=== PATIENT | male | born 1935 | race Caucasian/White ===

== ENCOUNTER 2022-12-08 18:39 | Inpatient (IN) ==
[2022-12-08] MEDS ORDERED: IOPAMIDOL 100 ML BOTTLE IV ONE (18:40)
[2022-12-08] MEDS ORDERED: ALBUTEROL SULFATE 2.5 MG/3 ML NEBULIZER NEB ONE (19:40)
[2022-12-08] MEDS ORDERED: IPRATROPIUM/ALBUTEROL 3 ML AMPUL.NEB NEB ONE (19:40)
[2022-12-08] MEDS ORDERED: methylPREDNISolone SOD SUCC 125 MG/2 ML VIAL IV ONE (19:42)
[2022-12-08 19:57] LABS: POC Calcium, Ionized 1.1 (1.16-1.32); POC Creatinine 1.2 (0.6-1.2); POC Potassium 3.7 (3.3-5.1)
[2022-12-08 20:58] LABS: Basophils # (Auto) 0.06 K/mcL (0.00-0.30); Basophils % (Auto) 1.2 % (0.0-2.0); Eosinophils # (Auto) 0.08 K/mcL (0.00-0.70); Eosinophils % (Auto) 1.6 % (0.0-7.0); Hematocrit 39.3 % (40.1-51.0); Hemoglobin 12.6 g/dL (13.7-17.5); Lymphocytes # (Auto) 1.25 K/mcL (1.50-4.80); Lymphocytes % (Auto) 25.1 % (15.5-49.0); Mean Cell Volume 96.6 fL (80.0-100.0); Mean Corpuscular HGB Conc 32.1 g/dL (31.0-36.0); Mean Platelet Volume 10.8 fL (8.8-12.5); Monocytes # (Auto) 0.37 K/mcL (0.10-0.90); Monocytes % (Auto) 7.4 % (1.0-12.0); Neutrophils % (Auto) 64.3 % (38.0-78.0); Platelet Count 116 K/mcL (140-440); RBC 4.07 M/mcL (4.63-6.08); Red Cell Distribution Width 19.9 % (11.5-14.5)
[2022-12-08 21:10] LABS: ALT/SGPT 16 U/L (<40); AST/SGOT 31 U/L (<40); Albumin 3.7 gm/dL (3.2-5.2); Alkaline Phosphatase 121 U/L (39-117); Bilirubin,Direct 0.4 mg/dL (<0.3); Bilirubin,Total 1.1 mg/dL (0.1-1.0); Globulin 3.3 gm/dL (2.2-3.7)
[2022-12-08] MEDS ORDERED: FUROSEMIDE 100 MG/10 ML VIAL IV ONE (21:24)
[2022-12-08 22:44] LABS: INR 1.6 (0.9-1.1); Prothrombin Time 19.4 sec (11.9-14.5)
[2022-12-09] MEDS ORDERED: ALBUTEROL SULFATE 2.5 MG/3 ML NEBULIZER NEB PRN (00:04)
[2022-12-09] MEDS ORDERED: ONDANSETRON 4 MG/2 ML VIAL IV PRN (00:04)
[2022-12-09] MEDS ORDERED: SENNOSIDES 1 TABLET PO PRN (00:04)
[2022-12-09] MEDS ORDERED: ACETAMINOPHEN 325 MG TABLET PO PRN (00:04)
[2022-12-09] MEDS ORDERED: LACTULOSE 20 GM/30 ML ORAL.SOL PO PRN (00:04)
[2022-12-09] MEDS ORDERED: METOPROLOL TARTRATE 50 MG TABLET PO ONE (00:39)
[2022-12-09] MEDS ORDERED: METOPROLOL TARTRATE 50 MG TABLET ONE (00:53)
[2022-12-09] MEDS: 0.9 % SODIUM CHLORIDE 10 ML SYRINGE IV SCH ×4 (02:01→20:56)
[2022-12-09] MEDS: IPRATROPIUM/ALBUTEROL 3 ML AMPUL.NEB NEB SCH ×7 (05:01→23:00)
[2022-12-09 06:34] LABS: Basophils # (Auto) 0.01 K/mcL (0.00-0.30); Basophils % (Auto) 0.3 % (0.0-2.0); Eosinophils # (Auto) 0 K/mcL (0.00-0.70); Eosinophils % (Auto) 0 % (0.0-7.0); Hematocrit 37.6 % (40.1-51.0); Hemoglobin 12.4 g/dL (13.7-17.5); Lymphocytes # (Auto) 0.47 K/mcL (1.50-4.80); Lymphocytes % (Auto) 14.5 % (15.5-49.0); Mean Cell Volume 96.9 fL (80.0-100.0); Mean Platelet Volume 9.8 fL (8.8-12.5); Monocytes # (Auto) 0.04 K/mcL (0.10-0.90); Monocytes % (Auto) 1.2 % (1.0-12.0); Platelet Count 104 K/mcL (140-440); RBC 3.88 M/mcL (4.63-6.08); Red Cell Distribution Width 20.5 % (11.5-14.5); WBC 3.2 K/mcL (4.5-11.0)
[2022-12-09 06:45] LABS: ALT/SGPT 14 U/L (<40); AST/SGOT 21 U/L (<40); Albumin 3.5 gm/dL (3.2-5.2); Albumin/Globulin Ratio 1.1 (1.0-2.3); Alkaline Phosphatase 119 U/L (39-117); Bilirubin,Direct 0.5 mg/dL (<0.3); Bilirubin,Total 1.4 mg/dL (0.1-1.0); Blood Urea Nitrogen 22 mg/dL (8-23); Calcium 9.3 mg/dL (8.6-10.4); Carbon Dioxide 28 mmol/L (22-30); Chloride 99 mmol/L (96-108); Globulin 3.2 gm/dL (2.2-3.7); Glomerular Filtration Rate 68; Glucose 154 mg/dL (70-105); Lactate Dehydrogenase 237 U/L (135-225); Phosphorous 4.3 mg/dL (2.5-4.5); Triglycerides 42 mg/dL (<150); Uric Acid 11.3 mg/dL (2.5-8.0)
[2022-12-09] MEDS: FUROSEMIDE 40 MG/4 ML VIAL IV SCH ×2 (08:23→15:47)
[2022-12-09] MEDS: DOCUSATE SODIUM 100 MG CAPSULE PO SCH ×2 (08:23→20:50)
[2022-12-09] MEDS: METOPROLOL SUCCINATE 50 MG TAB.XL.24H PO SCH ×2 (08:24→20:50)
[2022-12-09] MEDS ORDERED: METOPROLOL TARTRATE 50 MG TABLET PO SCH (09:00)
[2022-12-09] MEDS ORDERED: FUROSEMIDE 40 MG/4 ML VIAL IV SCH (09:00)
[2022-12-09] MEDS ORDERED: methylPREDNISolone SOD SUCC 125 MG/2 ML VIAL IV SCH (09:00)
[2022-12-09 09:36] LABS: INR 1.5 (0.9-1.1); Prothrombin Time 18.4 sec (11.9-14.5)
[2022-12-09] MEDS ORDERED: WARFARIN 7.5 MG TABLET PO ONE (14:00)
[2022-12-09] MEDS: METOPROLOL TARTRATE 5 MG/5 ML VIAL IV PRN (16:27)
[2022-12-10] MEDS: IPRATROPIUM/ALBUTEROL 3 ML AMPUL.NEB NEB SCH ×6 (03:13→23:24)
[2022-12-10] MEDS: 0.9 % SODIUM CHLORIDE 10 ML SYRINGE IV SCH ×3 (05:13→21:07)
[2022-12-10 06:28] LABS: Basophils # (Auto) 0.04 K/mcL (0.00-0.30); Basophils % (Auto) 0.6 % (0.0-2.0); Eosinophils # (Auto) 0.05 K/mcL (0.00-0.70); Eosinophils % (Auto) 0.7 % (0.0-7.0); Hematocrit 37.6 % (40.1-51.0); Hemoglobin 12.4 g/dL (13.7-17.5); Lymphocytes # (Auto) 1.03 K/mcL (1.50-4.80); Lymphocytes % (Auto) 14.9 % (15.5-49.0); Mean Cell Volume 95.2 fL (80.0-100.0); Mean Platelet Volume 10.5 fL (8.8-12.5); Monocytes # (Auto) 0.47 K/mcL (0.10-0.90); Monocytes % (Auto) 6.8 % (1.0-12.0); Neutrophils % (Auto) 76.7 % (38.0-78.0); Platelet Count 121 K/mcL (140-440); RBC 3.95 M/mcL (4.63-6.08); Red Cell Distribution Width 19.9 % (11.5-14.5); WBC 6.9 K/mcL (4.5-11.0)
[2022-12-10 06:36] LABS: INR 1.5 (0.9-1.1); Prothrombin Time 19.1 sec (11.9-14.5)
[2022-12-10 06:50] LABS: ALT/SGPT 13 U/L (<40); AST/SGOT 17 U/L (<40); Albumin 3.3 gm/dL (3.2-5.2); Albumin/Globulin Ratio 1.1 (1.0-2.3); Alkaline Phosphatase 101 U/L (39-117); Bilirubin,Direct 0.4 mg/dL (<0.3); Bilirubin,Total 1.1 mg/dL (0.1-1.0); Blood Urea Nitrogen 29 mg/dL (8-23); Calcium 9.2 mg/dL (8.6-10.4); Carbon Dioxide 34 mmol/L (22-30); Chloride 96 mmol/L (96-108); Globulin 3.1 gm/dL (2.2-3.7); Glomerular Filtration Rate 54; Glucose 95 mg/dL (70-105); Lactate Dehydrogenase 210 U/L (135-225); Phosphorous 4.1 mg/dL (2.5-4.5); Triglycerides 52 mg/dL (<150)
[2022-12-10] MEDS ORDERED: POTASSIUM CHLORIDE 20 MEQ TABLET PO ONE (07:54)
[2022-12-10] MEDS: FUROSEMIDE 40 MG/4 ML VIAL IV SCH (08:06)
[2022-12-10] MEDS: METOPROLOL SUCCINATE 50 MG TAB.XL.24H PO SCH (08:06)
[2022-12-10] MEDS: DOCUSATE SODIUM 100 MG CAPSULE PO SCH ×2 (08:26→19:42)
[2022-12-10] MEDS: ASPIRIN 81 MG TAB.CHEW PO SCH (10:19)
[2022-12-10] MEDS: METOPROLOL TARTRATE 5 MG/5 ML VIAL IV PRN ×2 (10:19→17:33)
[2022-12-10] MEDS ORDERED: WARFARIN 7.5 MG TABLET PO ONE (14:00)
[2022-12-10] MEDS: FUROSEMIDE 40 MG TABLET PO SCH (17:15)
[2022-12-10] MEDS ORDERED: AMIODARONE 150 MG in DEXTROSE 5% IN WATER 50 ML IV ONE (17:48)
[2022-12-10] MEDS ORDERED: AMIODARONE 150 MG/3 ML VIAL IV ONE (17:57)
[2022-12-10] MEDS ORDERED: AMIODARONE 360 MG in PREMIX 1 BAG IV SCH (18:30)
[2022-12-10] MEDS ORDERED: AMIODARONE 360 MG/200 ML BAG IV ONE (18:48)
[2022-12-10] MEDS: METOPROLOL TARTRATE 50 MG TABLET PO SCH (21:11)
[2022-12-11] MEDS ORDERED: AMIODARONE 360 MG/200 ML BAG IV ONE ×2 (00:29→12:05)
[2022-12-11] MEDS: AMIODARONE 360 MG in PREMIX 1 BAG IV SCH ×2 (00:30→12:22)
[2022-12-11] MEDS: IPRATROPIUM/ALBUTEROL 3 ML AMPUL.NEB NEB SCH ×2 (02:59→06:35)
[2022-12-11] MEDS: 0.9 % SODIUM CHLORIDE 10 ML SYRINGE IV SCH ×3 (05:38→22:57)
[2022-12-11 06:26] LABS: Basophils # (Auto) 0.06 K/mcL (0.00-0.30); Basophils % (Auto) 1.1 % (0.0-2.0); Eosinophils # (Auto) 0.14 K/mcL (0.00-0.70); Eosinophils % (Auto) 2.5 % (0.0-7.0); Hematocrit 38.1 % (40.1-51.0); Hemoglobin 12.2 g/dL (13.7-17.5); Lymphocytes # (Auto) 1.17 K/mcL (1.50-4.80); Lymphocytes % (Auto) 20.8 % (15.5-49.0); Mean Cell Volume 95.3 fL (80.0-100.0); Mean Platelet Volume 10.2 fL (8.8-12.5); Monocytes # (Auto) 0.46 K/mcL (0.10-0.90); Monocytes % (Auto) 8.2 % (1.0-12.0); Neutrophils % (Auto) 67.2 % (38.0-78.0); Platelet Count 124 K/mcL (140-440); Red Cell Distribution Width 19.3 % (11.5-14.5); WBC 5.6 K/mcL (4.5-11.0)
[2022-12-11 07:00] LABS: INR 1.8 (0.9-1.1); Prothrombin Time 21.4 sec (11.9-14.5)
[2022-12-11 07:16] LABS: ALT/SGPT 13 U/L (<40); AST/SGOT 17 U/L (<40); Albumin 3.3 gm/dL (3.2-5.2); Alkaline Phosphatase 100 U/L (39-117); Bilirubin,Direct 0.4 mg/dL (<0.3); Bilirubin,Total 0.8 mg/dL (0.1-1.0); Blood Urea Nitrogen 31 mg/dL (8-23); Calcium 8.8 mg/dL (8.6-10.4); Carbon Dioxide 33 mmol/L (22-30); Chloride 95 mmol/L (96-108); Globulin 3.3 gm/dL (2.2-3.7); Glomerular Filtration Rate 54; Glucose 98 mg/dL (70-105); Lactate Dehydrogenase 201 U/L (135-225); Phosphorous 3.5 mg/dL (2.5-4.5); Triglycerides 78 mg/dL (<150); Uric Acid 11.8 mg/dL (2.5-8.0)
[2022-12-11] MEDS ORDERED: IPRATROPIUM/ALBUTEROL 3 ML AMPUL.NEB NEB PRN (07:20)
[2022-12-11] MEDS: FUROSEMIDE 40 MG TABLET PO SCH ×2 (07:51→16:56)
[2022-12-11] MEDS: POTASSIUM CHLORIDE 10 MEQ TABLET PO SCH (07:51)
[2022-12-11] MEDS: METOPROLOL TARTRATE 50 MG TABLET PO SCH ×2 (07:53→20:29)
[2022-12-11] MEDS: ASPIRIN 81 MG TAB.CHEW PO SCH (07:53)
[2022-12-11] MEDS: OMEPRAZOLE 20 MG CAPSULE PO SCH (07:53)
[2022-12-11] MEDS: DOCUSATE SODIUM 100 MG CAPSULE PO SCH ×2 (08:55→20:30)
[2022-12-11] MEDS ORDERED: WARFARIN 7.5 MG TABLET PO ONE (14:00)
[2022-12-12 06:24] LABS: INR 2.3 (0.9-1.1); Prothrombin Time 26.3 sec (11.9-14.5)
[2022-12-12] MEDS: 0.9 % SODIUM CHLORIDE 10 ML SYRINGE IV SCH (07:46)
[2022-12-12] MEDS: FUROSEMIDE 40 MG TABLET PO SCH ×2 (07:46→08:20)
[2022-12-12] MEDS: OMEPRAZOLE 20 MG CAPSULE PO SCH (07:46)
[2022-12-12] MEDS: POTASSIUM CHLORIDE 10 MEQ TABLET PO SCH (07:46)
[2022-12-12] MEDS: METOPROLOL TARTRATE 50 MG TABLET PO SCH (07:46)
[2022-12-12] MEDS: DOCUSATE SODIUM 100 MG CAPSULE PO SCH (07:46)
[2022-12-12] MEDS: ASPIRIN 81 MG TAB.CHEW PO SCH (07:46)
[2022-12-12] MEDS ORDERED: AMIODARONE HCL 200 MG TABLET PO SCH (08:00)
[2022-12-12] MEDS ORDERED: AMIODARONE HCL 200 MG TABLET ONE (09:30)
[2022-12-12] MEDS ORDERED: WARFARIN 7.5 MG TABLET PO ONE (14:00)
== END 2022-12-12 10:55 | disposition home or self-care (01) | DRG 302 ==
LOC: ED 18:39 → ICU 23:41
PROVIDERS: ADMIT Internal Medicine; ATTEND Internal Medicine